=== PATIENT | male | born 1955 | race Two or more races ===

== ENCOUNTER 2019-06-26 09:29 | Day surgery (SDC) | payer OTHER ==
[2019-06-23 10:45] VITALS: BMI 21.9
[2019-06-26 09:55] VITALS: TEMP 98.7
[2019-06-26] MEDS ORDERED: PROPOFOL 20 ML ONE (10:43)
[2019-06-26 11:14] VITALS: PULSE 52
[2019-06-26 11:37] VITALS: BP 130/66
--- NOTE | 2019-06-28 16:18 | PATH ---
Surgical Pathology Report Patient Name: RICA ACUNA [facility]. Rec. #: [id number] /Age/Gender: 1955 (Age: 64) / M Account: [id number] Location: [facility] Taken: 06/26/2019 Received: 06/26/2019 Reported: 06/28/2019 Physicians: Tomi Diehl M.D. Specimen(s) Received POLYP SIGMOID COLON Clinical History Constipation Postoperative diagnosis: Diverticulosis, colon polyp Final Diagnosis SIGMOID COLON, POLYP, BIOPSY: TUBULAR ADENOMA. Electronically Signed Juanis Garcia M.D. Gross Description Received in formalin, labeled "biopsy polyp sigmoid colon" is a gonzalez, irregular portion of soft tissue measuring 0.4 cm. in greatest dimension. The specimen is submitted in toto in one cassette. /06/27/201906/27/2019
== END 2019-06-26 12:00 | disposition home or self-care (01) ==
LOC: FASU-ENDO 09:29
PROVIDERS: ATTEND Internal Medicine Gastroenterology
PROC: 0DBN8ZX Excision of Sigmoid Colon, Via Natural or Artificial Opening Endoscopic, Diagnostic (ICD-10-PCS; principal; 2019-06-26 10:48)
DX: D12.5 Benign neoplasm of sigmoid colon (principal); K57.30 Diverticulosis of large intestine without perforation or abscess without bleeding; K59.00 Constipation, unspecified
CPT/HCPCS: 88305-TC